=== PATIENT | male | born 1975 | race Caucasian/White ===

== ENCOUNTER 2016-12-13 16:04 | Outpatient (CLI) | payer BC ==
--- NOTE | 2016-12-14 10:09 | Diagnostic Imaging Report ---
Indication: COUGH Technique: PA and lateral views of the chest. Findings: Comparison: None The bones and extra pulmonary soft tissues, cardiomediastinal silhouette, pulmonary vasculature and parenchyma, and pleural surfaces are unremarkable. IMPRESSION: Negative PA and lateral chest radiographs
== END 2016-12-13 18:04 | disposition home or self-care (01) ==
LOC: RAD 16:04
DX: R05 Cough (principal)
CPT/HCPCS: 71020